=== PATIENT | female | born 1980 | race Caucasian/White ===

== ENCOUNTER 2019-05-03 11:00 | Outpatient (RCR) | payer OTHER, SELFPAY ==
--- NOTE | 2019-04-01 10:27 | PTOPEVAL ---
PHYSICAL THERAPY EVALUATION AND PLAN OF CARE 04-01-2019 The PT evaluation was completed today for the diagnosis of L shoulder pain/tendonitis and the plan of treatment is scheduled for 1-2 x/week for 4 weeks. Thank you for referring Yola to [facility]. Please review, sign, date and return this plan of care [facility]. I agree with and certify that the following plan of care is medically necessary. Referring Physician Date Attending Provider: Megan Lebron MD *PT Outpatient Evaluation Start: 04/01/19 09:05 Document 04/01/19 09:06 DARIO (Rec: 04/01/19 10:14 DARIO [id number]) Therapy Assessment Status Assessment Status Assessment Status Evaluation Outpatient Past Medical History Neurological History Hx Neurological Disorders No Significant History Cardiovascular History Hx Cardiac Disorders No Significant History Respiratory History Hx Other Respiratory Disorders Yes: seasonal allergies/ allergic to sorbitol/have epi pen Gastrointestinal History Hx Gastroesophageal Reflux Disease Yes: meds control Hx Other Gastrointestinal Disorders Yes: gall bladder removed; pancreatitis Musculoskeletal History Hx Arthritis Yes: general/all over joint pain, creaking Hx Other Musculoskeletal Disorders Yes: obesity 235#; recent L ankle sprain Integumentary History Hx Other Skin Disorders Yes: skin allergies to cleaning chemicals Reproductive History Hx Abnormal Uterine Bleeding Yes: uterine polyp removed Hx Other Reproductive Disorders Yes: ovarian cyst removal 2x; and one that burst Evaluation Information Problem Diagnosis L shoulder pain, tendonitis Onset Feb 04 2019 Subjective Information flute player, increased Query Text:As Reported By Patient/ playing over AVOB; Family Diagnostic Tests MRI For This Problem Yes: done recently-not know results Previous Treatments Previous Treatments For This Problem no PT for shoulder Prior Level of Function Activity Level (Last 3 Months) Occupation work is computer work; Hand Dominance Ambidextrous Cooking Yes Cleaning Yes Laundry Yes Shopping Yes Driving Yes Home Setting Home Type House Living Situation With Spouse Comments Additional Prior Level of Function active; bicycle 2-3 x/week Comments outside- seasonal; also lift weight for fitness- have not done since Nov
--- NOTE | 2019-05-03 11:49 | PTOPEVAL ---
PHYSICAL THERAPY DISCHARGE 05-03-2019 Mrs. Marrufo has received 6 Physical Therapy sessions, from April 01 to today, for the diagnosis of L shoulder pain, bicep tendonitis. Yola has improved with: decreased pain rating at the worst rating: not taking any over the counter meds for shoulder pain; increased L shoulder AROM and strength; playing the flute for 6 minutes; improved postural awareness and is independent with her home exercise program. Thank you for referring Mrs. Marrufo to [facility]. Please review, sign, date and return this discharge summary [facility]. I agree with and certify that the following plan of care is medically necessary. Referring Physician Date Attending Provider: Megan Lebron MD *PT Outpatient Discharge Document 05/03/19 11:13 DARIO (Rec: 05/03/19 11:43 DARIO [id number]) Subjective Information Yola reports: doing better Query Text:As Reported By Patient/ with range of motion, but Family strength still weak; have been ill with flu and not doing as much; play flute about 6 minutes; can lie on L side 20 minutes; Pain Assessment Timing of Pain Assessment Timing of Pain Assessment Assessment Pain Scale Pain Scale Used Numeric (1 - 10) Self Report Pain Assessment Left Shoulder(s) Reported Pain Level 0 Pain Description Burning,Tightness Radicular Pain Location anterior shoulder--little burning when play flute too long; Pain Frequency Acute Current Pain Intensity 0 Lowest Pain Intensity 0 Greatest Pain Intensity 2 Additional Pain Comments lie on L side 20 min;play flute 6 minutes;not taking any over counter meds Pain Score Pain Score 0: Self Report Upper Extremity Range of Motion Scapular/ Shoulder Range of Motion Left Shoulder Flexion - Active 155 Shoulder Abduction - Active 155 Shoulder Medial Rotation - Active fingers to bra strap; R=L Query Text:Reach Behind the Back Shoulder Lateral Rotation - Active reach to back of head Query Text:Reach Behind the Head Scapular/Shoulder Range of Motion with IR- tight anterior Comments shoulder, not pain Upper Extremity Muscle Strength Testing General Upper Extremity Strength Gross Upper Extremity Strength Comments standin reps with hand wt : flexion 155' with 5#; abduction 155' 4#; prone: sh extension/scapular adduction with arms at side; 90' 2# x 10 reps; with overhead; pulls cervical and
== END 2019-05-03 14:18 | disposition home or self-care (01) ==
LOC: ANHPT 11:00
PROVIDERS: PCP Family Medicine; Visit Provider Family Medicine
DX: M75.102 Unspecified rotator cuff tear or rupture of left shoulder, not specified as traumatic (principal); M75.22 Bicipital tendinitis, left shoulder; M25.519 Pain in unspecified shoulder
CPT/HCPCS: 97110; 97161

== ENCOUNTER 2019-08-03 16:06 | Outpatient (CLI) | payer OTHER, SELFPAY ==
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
== END 2019-08-03 16:07 | disposition home or self-care (01) ==
PROVIDERS: PCP Family Medicine; Visit Provider Physician Assistant
DX: M54.9 Dorsalgia, unspecified (principal)
CPT/HCPCS: 72100

== ENCOUNTER 2019-11-07 17:03 | Emergency (ER) | payer OTHER, SELFPAY ==
--- NOTE | ~2019-11-07 | XR_ITS ---
EXAMINATION: XR chest 2V DATE: 11/07/2019 18:02 INDICATION: Shortness of breath TECHNIQUE: PA and lateral views of the chest are obtained. COMPARISON: None available FINDINGS: The lungs are free of acute opacities. There is no pleural effusion or pneumothorax. The ca rdiomediastinal silhouette is normal. The visualized bones and soft tissues are unremarkable. Surgica l clips in the right upper quadrant are likely from prior cholecystectomy. IMPRESSION: 1. No acute cardiopulmonary abnormality. Reviewed, dictated and finalized at location A.
[2019-11-07 17:13] VITALS: BP 127/86; PULSE 78; RESP 16; TEMP 36.8; O2SAT 100
--- NOTE | 2019-11-07 17:13 | ECG_ITS ---
Measurements Intervals [place] Rate: 80 P: 66 ND: 158 QRS: 48 QRSD: 92 T: 59 QT: 366 QTc: 425 Interpretive Statements SINUS RHYTHM INCOMPLETE RIGHT BUNDLE BRANCH BLOCK BASELINE WANDER- V3 BORDERLINE ECG Electronically Signed On 11-07-2019 18:40:00 CDT by Nixon Ring D.O.
[2019-11-07 17:32] LABS: Basophils Absolute Auto 0.1 K/mm3 (0.0-0.1); Basophils Percent Auto 0.6 % (0.2-1.2); Eosinophils Absolute Auto 0.1 K/mm3 (0-0.3); Eosinophils Percent Auto 0.6 % (0-4.4); Hematocrit 38.1 % (37.0-47.0); Hemoglobin 12.5 g/dL (12.0-15.0); Immature Granulocyte Absolute 0.03 K/mm3 (0.00-0.031); Immature Granulocyte Percent A 0.3 % (0-0.5); Lymphocytes Absolute Auto 3.43 K/mm3 (0.9-3.2); Lymphocytes Percent Auto 31.6 % (18.3-44.2); Mean Corpuscular HGB Conc 32.8 g/dl (32-36); Mean Corpuscular Hemoglobin 28.1 pg (26-34); Mean Corpuscular Volume 85.6 fl (80-100); Mean Platelet Volume 9.5 fl (7.4-10.4); Monocytes Absolute Auto 0.5 K/mm3 (0.1-0.6); Monocytes Percent Auto 4.3 % (2.6-8.5); Neutrophils Absolute Auto 6.8 K/mm3 (1.3-6.7); Neutrophils Percent Auto 62.6 % (45.5-73.1); Platelet Count Result 350 k/mm3 (150-375); Red Blood Count 4.45 M/mm3 (4.2-5.4); White Blood Count 10.8 K/mm3 (4.5-10.0)
[2019-11-07 17:41] LABS: Prothrombin Time 12.5 Seconds (11.1-14.7)
[2019-11-07 17:42] LABS: Partial Thromboplastin Time 29.2 SECONDS (22.3-36.8)
[2019-11-07 17:45] LABS: Anion Gap 8 mmol/L (8-16); Blood Urea Nitrogen 12 mg/dL (7-17); Calcium 9.6 mg/dL (8.4-10.2); Carbon Dioxide 27 mmol/L (22-30); Chloride 104 mmol/L (98-107); Estimated CRCL calculation 93 ml/min; Estimated Glomerular Filt Rate > 60; Glucose 89 mg/dL (65-105); Potassium 3.9 mmol/L (3.4-5.0); Sodium 139 mmol/L (137-145)
[2019-11-07 17:56] LABS: Troponin I < 0.012 ng/mL (0.000-0.034)
[2019-11-07 21:52] VITALS: BP 168/99; PULSE 88; RESP 18; O2SAT 100
--- NOTE | 2019-11-07 21:54 | PC.NURSE ---
pt presents to ER with c/o palpitations. pt states last Thursday she had allergic reaction to flu shot. pt states since then she has had frequent episodes of palpitations. pt states, I can tell when my heart is racing when I am just sitting there. states max heart rate of 120. NSR upon arrival. denies CP, denies SOB. pt in NAD. RR even and unlabored. pt hooked up to monitor; will continue to monitor pt for baseline status changes. denies cardiac hx.
[2019-11-07] MEDS: ASPIRIN 81 MG CHEWABLE TABLET 324 MG PO (22:14)
--- NOTE | 2019-11-07 22:39 | ED.GENADULT ---
HPI - General Adult General Chief complaint: Arrhythmia/Palpitations Stated complaint: heart racing Time Seen by Provider: 11/07/19 21:51 Source: patient History of Present Illness HPI narrative: Patient is a 38 y/o female complaining of heart palpitation that started approximately 10 hours at around 12:30 PM today. She states that she was just sitting there when it happened. It lasted 30 minutes to 1 hour. There was no alleviating or exacerbating factor. She denies any chest pain, SOB or passing out. She states that her symptoms resolved spontaneously. Related Data Home Medications Medication Instructions Recorded Confirmed esomeprazole magnesium 20 mg 20 mg PO BID cap 08/03/19 08/03/19 capsule,delayed release loratadine [Claritin] 10 mg PO DAILY 11/07/19 Allergies Allergy/AdvReac Type Severity Reaction Status Date / Time omeprazole [From Prilosec] Allergy Mild Headache Verified 08/03/19 15:16 plum AdvReac Intermediate swelling Verified 08/03/19 15:16 Review of Systems Constitutional: Constitutional: Denies chills, Denies fever(s), Denies headache(s) and Denies weakness Eyes: Eyes: Denies blurry vision ENT: Denies headache(s) and Denies neck pain Cardiovascular: Cardiovascular: Denies chest pain, Reports rapid heart rate and Denies dyspnea Respiratory: Respiratory: Denies cough and Denies dyspnea Gastrointestinal: Gastrointestinal: Denies abdominal pain, Denies diarrhea, Denies nausea and Denies vomiting Genitourinary: Genitourinary: Denies hematuria and Denies dysuria Musculoskeletal: Musculoskeletal: Denies back pain and Denies neck pain Neurologic: Denies headache(s) and Denies weakness [facility] Family History Family History Other Cerebrovascular accident Diabetes mellitus Family history of arthritis Family history of malignant neoplasm Family history of mental disorder Hypertension Social History Social History Smoking status: Never smoker Alcohol intake: current Gender identity (if verbalized by the patient): Female Exam Const: General: no acute distress and well developed Orientation/consciousness: oriented to person, oriented to place, oriented to time and patient oriented x3 HENMT: Head: normocephalic Ears: external ears normal General nose exam: Normal external nose present Eyes: General: appearance normal, both eyes and all related structures Conjunctivae: conjunctivae normal Neck: Neck: normal visual inspection and full ROM Chest: Chest palpation & inspection: normal inspection of the chest and no tenderness Resp: Effort & Inspection: normal respiratory effort Auscultation: clear to auscultation bilaterally Cardio: Rate: regular rate Rhythm: regular rhythm GI: GI Palp: No abdominal tenderness and Yes Soft to palpation Skin: General skin exam: normal color and turgor normal Neuro: General: oriented to person, oriented to place, oriented to time and patient oriented x3 Cognition (Neuro): normal cognition Extrem: General: normal to inspection, full ROM and no pedal edema Psych: Appearance: grossly normal Mental Status: mental status grossly normal Affect: normal affect Course Vital Signs Vital signs: Vital Signs Temperature 36.8 C 11/07/19 17:13 Pulse Rate 78 11/07/19 17:13 Respiratory Rate 16 11/07/19 17:13 Blood Pressure 127/86 11/07/19 17:13 Pulse Oximetry 100 11/07/19 17:13 Temperature 36.8 C 11/07/19 17:13 Pulse Rate 77 11/08/19 00:16 Respiratory Rate 17 11/08/19 00:16 Blood Pressure 139/70 11/08/19 00:16 Pulse Oximetry 100 11/08/19 00:16 Medical Decision Making Vital Signs Vital Signs: Vital Signs Temperature 36.8 C 11/07/19 17:13 Pulse Rate 78 11/07/19 17:13 Respiratory Rate 16 11/07/19 17:13 Blood Pressure 127/86 11/07/19 17:13 Pulse Oximetry 100 11/07/19 17:13 Temperatu
[2019-11-07 22:44] LABS: Add Urine Microscopic? NO; Appearance Urine Clear (Clear); Bilirubin Urine Negative (Negative); Blood Urine Negative (Negative); Color Urine Yellow (Yellow); Glucose Urine UA Negative (Negative); Ketones Urine Negative (Negative); Leukocyte Esterase Ur Negative LEU/UL (Negative); Mucus Urine Rare /lpf; Nitrate Urine Negative (Negative); Protein Urine Negative (Negative); RBC Urine 0-2 /hpf (0-2); Squamous Epithelial Cell Urine Few /hpf (Few); Urobilinogen Urine Negative mg/dL (<2.0); WBC Urine 0-3 /hpf
[2019-11-07 22:52] LABS: Troponin I < 0.012 ng/mL (0.000-0.034)
--- NOTE | 2019-11-07 22:54 | PC.NURSE ---
pt's at bedside-updated on poc
[2019-11-08 00:16] VITALS: BP 139/70; PULSE 77; RESP 17; O2SAT 100
== END 2019-11-08 00:17 | disposition home or self-care (01) ==
PROVIDERS: Emergency Provider Emergency Medicine; PCP Family Medicine
DX: R00.2 Palpitations (principal); R00.0 Tachycardia, unspecified; I45.10 Unspecified right bundle-branch block
CPT/HCPCS: 36415; 71046; 80048; 81003; 81025; 84443; 84484; 85025; 85610; 85730; 93005; 99284; A9270

== ENCOUNTER 2020-05-04 15:46 | Outpatient (CLI) | payer OTHER, SELFPAY | END 2020-05-04 15:47 | disposition home or self-care (01) | LOC: ANHCOVIDVC 15:46 | PROVIDERS: PCP Family Medicine | DX: Z23 Encounter for immunization (principal) | CPT/HCPCS: 0001A; 91300 ==

== ENCOUNTER 2020-05-25 15:52 | Outpatient (CLI) | payer OTHER, SELFPAY | END 2020-05-25 15:53 | disposition home or self-care (01) | LOC: ANHCOVIDVC 15:52 | PROVIDERS: PCP Family Medicine | DX: Z23 Encounter for immunization (principal) | CPT/HCPCS: 0002A; 91300 ==

== ENCOUNTER 2021-06-12 09:34 | Outpatient (CLI) | payer OTHER, SELFPAY ==
--- NOTE | ~2021-06-12 | MM_ITS ---
EXAMINATION: MM screening frank BI w sara HISTORY: Screening TECHNIQUE: Craniocaudal and mediolateral oblique 3-D tomosynthesis images were obtained and synthetic 2-D images were generated. CAD analysis was submitted and interpreted. COMPARISON: No prior mammogram is available for comparison at this institution. BREAST PARENCHYMAL COMPOSITION: There are scattered areas of fibroglandular density. FINDINGS: There is no evidence of suspicious mass, calcification, or architectural distortion to sugg est malignancy in either breast. There has been no suspicious interval change. IMPRESSION: 1. No mammographic evidence of malignancy. 2. Recommend routine screening mammography in one year. BI-RADS Category 1: Negative Reviewed, dictated and finalized at location A.
== END 2021-06-12 09:35 | disposition home or self-care (01) ==
LOC: ANHIMG 09:35
PROVIDERS: PCP Family Medicine; Visit Provider Obstetrics & Gynecology
DX: Z12.31 Encounter for screening mammogram for malignant neoplasm of breast (principal)
CPT/HCPCS: 77063; 77067

== ENCOUNTER 2021-08-14 10:19 | Outpatient (RCR) | payer BC, SELFPAY ==
[2021-08-14] MEDS: ACETAMINOPHEN 325 MG TABLET 650 MG PO (10:37)
[2021-08-14] MEDS: diphenhydrAMINE HCl CAP 25 MG CAPSULE PO (10:38)
[2021-08-14] MEDS: FAMOTIDINE 20 MG TABLET PO (10:38)
[2021-08-14 10:42] VITALS: BP 150/82; PULSE 82; TEMP 36.2; O2SAT 99
[2021-08-14] MEDS: BEBTELOVIMAB 175 MG/2 ML VIAL IV PUSH (10:56)
[2021-08-14 11:54] VITALS: BP 134/63; PULSE 72; O2SAT 99
== END 2021-08-14 16:00 ==
LOC: AMCINF 10:19
PROVIDERS: Visit Provider Internal Medicine Hematology & Oncology
DX: U07.1 COVID-19 (principal)
CPT/HCPCS: A9270; M0222; Q0222

== ENCOUNTER 2022-07-28 15:28 | Outpatient (CLI) | payer BC, SELFPAY ==
--- NOTE | ~2022-07-28 | MM_ITS ---
EXAMINATION: MM screening frank BI w sara HISTORY: Screening mammogram TECHNIQUE: Craniocaudal and mediolateral oblique 3-D tomosynthesis images were obtained and synthetic 2-D images were generated. CAD analysis was submitted and interpreted. COMPARISON: June 12, 2021 bilateral screening mammogram BREAST PARENCHYMAL COMPOSITION: There are scattered areas of fibroglandular density. FINDINGS: There is no evidence of suspicious mass, calcification, or architectural distortion to sugg est malignancy in either breast. There has been no suspicious interval change. IMPRESSION: 1. No mammographic evidence of malignancy. 2. Recommend routine screening mammography in one year. BI-RADS Category 1: Negative Reviewed, dictated and finalized at location A.
== END 2022-07-28 15:29 | disposition home or self-care (01) ==
LOC: ANHIMG 15:29
PROVIDERS: PCP Emergency Medicine; Visit Provider Obstetrics & Gynecology
DX: Z12.31 Encounter for screening mammogram for malignant neoplasm of breast (principal)
CPT/HCPCS: 77063; 77067

== ENCOUNTER 2022-10-06 14:30 | Outpatient (CLI) | payer BC, SELFPAY ==
--- NOTE | 2022-10-06 14:48 | ECG_ITS ---
Measurements Intervals [place] Rate: 85 P: 63 DE: 140 QRS: 34 QRSD: 99 T: 68 QT: 355 QTc: 424 Interpretive Statements SINUS RHYTHM POSSIBLE RIGHT VENTRICULAR CONDUCTION DELAY [RSR (QR) IN V1/V2] COMPARED TO ECG 11/07/2019 17:08:07 NO SIGNIFICANT CHANGES Electronically Signed On 10-07-2022 11:09:57 CDT by Deb Millan M.D.
== END 2022-10-06 14:31 | disposition home or self-care (01) ==
LOC: ANHCARD 14:32
PROVIDERS: PCP Emergency Medicine; Visit Provider Emergency Medicine
DX: R00.2 Palpitations (principal); I45.9 Conduction disorder, unspecified
CPT/HCPCS: 93005

== ENCOUNTER 2023-01-20 12:49 | Emergency (ER) | payer BC, SELFPAY ==
[2023-01-20 13:03] VITALS: BP 132/64; PULSE 89; RESP 16; TEMP 37.2; O2SAT 99
[2023-01-20 13:10] VITALS: BP 132/64; PULSE 89; RESP 16; O2SAT 99
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
== END 2023-01-20 13:32 | disposition home or self-care (01) ==
PROVIDERS: Emergency Provider Nurse Practitioner; PCP Emergency Medicine
DX: M54.50 Low back pain, unspecified (principal); K21.9 Gastro-esophageal reflux disease without esophagitis; K22.4 Dyskinesia of esophagus
CPT/HCPCS: 99213; G0463

== ENCOUNTER 2023-01-26 08:44 | Outpatient (CLI) | payer SELFPAY ==
--- NOTE | ~2023-01-26 | MR_ITS ---
MRI of the lumbar spine Clinical History: Sciatica Technique: Axial T2-weighted images, and sagittal T1-weighted, T2-weighted, and and T2 fat-sat images were acquired. Findings: There is no fracture or subluxation of the lumbar spine. Vertebral bodies maintain normal h eight and alignment. No bone marrow signal abnormality seen. At L1-L2, there is no disc bulge or herniation. There is mild facet joint hypertrophy. No spinal horacio l stenosis or neural foraminal narrowing. At L2-L3, there is minimal disc bulge with moderate facet arthropathy. No central canal stenosis or n eural foraminal narrowing. L3-L4 and L4-L5, there is no disc bulge or herniation. There is mild facet arthropathy at these level s. No spinal canal stenosis or neural foraminal narrowing at these levels. At L5-S1, there is mild disc bulge with small annular fissure. There is minimal facet arthropathy. No central canal stenosis. There is minimal bilateral neural foraminal narrowing. Paravertebral soft tissues are unremarkable. Impression: Minimal degenerative spondylosis, worst at L5-S1, as detailed above. Reviewed, dictated and finalized at location . LEVEL DEVELOPER Impression: Minimal degenerative spondylosis, worst at L5-S1, as detailed above.
== END 2023-01-26 08:45 ==
PROVIDERS: PCP Emergency Medicine; Visit Provider Emergency Medicine
DX: M54.30 Sciatica, unspecified side (principal); M47.896 Other spondylosis, lumbar region
CPT/HCPCS: 72148

== ENCOUNTER 2023-06-30 10:16 | Outpatient (CLI) | payer BC, SELFPAY ==
--- NOTE | ~2023-06-30 | XR_ITS ---
AP view of the pelvis and AP and lateral views of the right hip Clinical history: Pain Findings: No acute fracture or dislocation is seen. Osseous alignment is anatomic. Bilateral hip and SI joint spaces are preserved. Soft tissues are unremarkable. Impression: No significant abnormality is seen. Reviewed, dictated and finalized at [facility]. Impression: No significant abnormality is seen.
== END 2023-06-30 10:17 ==
PROVIDERS: PCP Emergency Medicine; Visit Provider Emergency Medicine
DX: M25.551 Pain in right hip (principal)
CPT/HCPCS: 73502

== ENCOUNTER 2023-10-15 15:39 | Outpatient (CLI) | payer BC, SELFPAY ==
--- NOTE | ~2023-10-15 | MM_ITS ---
EXAMINATION: MM screening frank BI w sara HISTORY: Screening TECHNIQUE: Craniocaudal and mediolateral oblique 3-D tomosynthesis images were obtained and synthetic 2-D images were generated. CAD analysis was submitted and interpreted. COMPARISON: Comparison to multiple prior studies sequentially, with oldest reviewed study dated 06/12. BREAST PARENCHYMAL COMPOSITION: Not dense: There are scattered areas of fibroglandular density. FINDINGS: There is a new partially obscured mass in the upper outer quadrant of the right breast, pos terior third. The left breast is stable without evidence for malignancy. IMPRESSION: 1. New partially obscured mass upper outer quadrant of the left breast posterior third. 2. Additional mammographic views and possible breast ultrasound are recommended. BI-RADS Category 0: Incomplete: Needs additional imaging evaluation. Reviewed, dictated and finalized at location B. IMPRESSION: 1. New partially obscured mass upper outer quadrant of the left breast posterio r third. 2. Additional mammographic views and possible breast ultrasound are recommended . BI-RADS Category 0: Incomplete: Needs additional imaging evaluation.
== END 2023-10-15 15:40 | disposition home or self-care (01) ==
PROVIDERS: PCP Emergency Medicine; Visit Provider Obstetrics & Gynecology
DX: Z12.31 Encounter for screening mammogram for malignant neoplasm of breast (principal); N63.21 Unspecified lump in the left breast, upper outer quadrant
CPT/HCPCS: 77063; 77067

== ENCOUNTER 2023-11-23 12:43 | Outpatient (CLI) | payer BC, SELFPAY ==
--- NOTE | ~2023-11-23 | MMUS_ITS ---
EXAMINATION: MM diagnostic frank RT w sara, US breast RT limited HISTORY: Follow-up right breast asymmetry TECHNIQUE: Additional 3-D tomosynthesis images of the right breast were performed and synthetic 2-D i mages were generated. CAD analysis was submitted and interpreted. High resolution Limited right breas t ultrasound was performed. COMPARISON: Comparison to multiple prior studies sequentially, with oldest reviewed study dated 06/12. BREAST PARENCHYMAL COMPOSITION: Not dense: There are scattered areas of fibroglandular density. FINDINGS: MAMMOGRAPHIC FINDINGS: There is a new low-density mass in the upper outer quadrant of the right breast partially obscured by fibroglandular tissue. ULTRASOUND: Limited right breast ultrasound : At 10:00, 8 cm from the nipple is a lobulated hypoechoic mass measu ring 1.6 x 0.4 cm. No significant internal vascularity or posterior features. IMPRESSION: 1. Lobulated hypoechoic right breast mass at 10:00, 8 cm from the nipple. 2. Ultrasound-guided right breast biopsy recommended. BI-RADS category 4, suspicious findings. Reviewed, dictated and finalized at location B. IMPRESSION: 1. Lobulated hypoechoic right breast mass at 10:00, 8 cm from the nipple. 2. Ultrasound-guided right breast biopsy recommended. BI-RADS category 4, suspicious findings.
== END 2023-11-23 12:44 | disposition home or self-care (01) ==
LOC: ANHIMG 12:44
PROVIDERS: PCP Emergency Medicine; Visit Provider Obstetrics & Gynecology
DX: N63.20 Unspecified lump in the left breast, unspecified quadrant (principal); R92.8 Other abnormal and inconclusive findings on diagnostic imaging of breast
CPT/HCPCS: 76642; 77061; 77065; G0279

== ENCOUNTER 2023-11-26 07:50 | Outpatient (CLI) | payer BC, SELFPAY ==
--- NOTE | 2023-12-21 11:22 | P.SLEEP_ITS ---
Sleep Study Date of Study: 11/26/23 Ordering Provider: Ender Meeks APRN Interpreting Physician: Heena Alberto DO Sleep Study Type: Polysomnogram Height: 1.73 m Weight: 109.316 kg Body Mass Index: 36.6 Neck Circumference (inches): 16.75 Herreid: 12 Reason for Sleep Study Daytime fatigue Sleep History The patient is a 43-year-old female that had a sleep study ordered by the pulmonary group for evaluation daytime fatigue. The patient denies awakening from sleep short of breath. She frequently awakens at night with heartburn, belching or cough. She rarely snores and is never loud enough that others com plain. She occasionally has trouble sleeping when she has a cold. She denies waking up gasping for air throughout the night. She denies having breathing problems at night observed by herself or others. She denies sweating excessively at night. She occasionally has heart palpitations or irregular heartbeats during the night. She frequently falls asleep during the day but never while driving. She rarely experiences loss of muscle tone when extremely emotional. She occasionally has trouble at school or work due to sleepiness. She rarely feels unable to move while waking up or falling asleep. She constantly experiences vivid dreamlike scenes upon awakening or falling asleep. She denies feeling afraid of going to sleep. She rarely has nightmares. She occasionally remembers her dreams. She constantly has thoughts racing through her mind. She denies feeling sad or depressed. She rarely has anxiety. She rarely has muscular tension. She rarely notices parts of her body jerk. She denies kicking during the night. She denies having crawling and aching feelings in her legs and denies having leg pain during the night. She rarely grinds her teeth during sleep but occasionally awakens with morning jaw pain. She does currently use a entrance guard. She frequently is bothered by pain during the day but rarely awakened by pain during the night. She frequently wakes up feeling stiff in the morning. She frequently wakes up with sore or achy muscles. She constantly wakes up with pain in the neck, spine and other joints. She goes to bed between 9:45-10 p.m. on weekdays and between 10 to 10:30 p.m. on the weekends. It takes her 30-60 minutes to fall asleep. She wakes up 1-3 times throughout the night for unknown reasons. When she wakes up she will think about her dreams, right a story or music. She wakes up between 2-5 a.m. on both weekdays and weekends. He typically gets 5-9 hours of sleep per day. She will stay in bed for 10-15 minutes after waking up in the morning. She currently lives with her . She denies consuming any caffeinated beverages within 2 hours of bedtime. She denies engaging in physical exercise before bedtime. She will read before falling asleep. She denies watching television before falling asleep. She will take naps in afternoon of the evening and they are occasionally refreshing. She denies consuming caffeinated beverages throughout the day. She denies tobacco, alcohol and recreational drug use. [facility] Past Medical History Medical History Abnormal Pap smear of cervix 09/24/2016 ascus Acid reflux COVID-19 Diaphragmatic hernia without obstruction or gangrene Dyskinesia of esophagus Eczema Helicobacter pylori [H. pylori] as the cause of diseases classified elsewhere Left breast mass Left breast mass Neuralgia of left peroneal nerve Patellar tendinitis, left knee Screening mammogram, encounter for Screening mammogram, encounter for Surgical History Surgical History History of cholecystectomy 2016 History of dilation and curettage 03/11/18 hscope d&c/polypectomy--irregular vaginal bleeding, endometrial polyp History of endoscopic retrograde cholangiopancreatography 2016 pancreatitis History of esophagogastroduodenoscopy (EGD) 2012 x2 Family History Family History Father Heart disease Hypertension Diabetes mellitus Other Cerebrovascular accident Family history of arthritis Family history of malignant neoplasm Family history of mental disorder Social History Social History Smoking status: Never smoker Second hand tobacco smoke exposure: No Alcohol intake: former Alcohol use details: occasionally Substance use: never Substance use type: does not use Current Housing: Decline to Answer Concerned About Future Housing: Decline to Answer Difficulty Paying Gas/Electric Bills: Decline to Answer Difficulty Paying for Meds: Decline to Answer Currently Unemployed: Decline to Answer Education: Decline to Answer Difficulty w/ Childcare or Family Care: Decline to Answer Living arrangements: other Additional living arrangements comments: Occupation/Education: 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 Gender identity (if verbalized by the patient): Female Sexual Orientation (if Verbalized by the Patient): Straight or Heterosexual Medications Home Medications Medication Instructions Recorded Confirmed Type cholecalciferol (vitamin D3) 25 25 mcg PO DAILY 06/16/22 09/14/23 History mcg (1,000 unit) tablet esomeprazole magnesium 40 mg See Rx Instructions .Route 04/24/23 09/14/23 Rx capsule,delayed release .COMPLEX #180 caps cetirizine 10 mg capsule (Zyrtec) 10 mg PO DAILY PRN 05/27/23 09/14/23 History atomoxetine 80 mg capsule 80 mg PO DAILY #90 caps 08/11/23 09/14/23 Rx hydralazine 25 mg tablet 25 mg PO BID #180 tabs 08/11/23 09/14/23 Rx amlodipine 10 mg tablet (Norvasc) 10 mg PO DAILY #90 tabs 09/28/23 Rx losartan 100 See Rx Instructions .Route 09/28/23 Rx mg-hydrochlorothiazide 12.5 mg .COMPLEX #90 tabs tablet Sleep Procedure A full night polysomnogram using the [employer] multi-channel system recorded the standard physiologic parameters including EEG, EOG, submentalis EMG, anterior tibialis EMG, EKG, body position, nasal and oral airflow using nasal pressure sensor and thermistor.? Respiratory parameters of chest and abdominal movements were recorded with Respiratory Inductance Plethysmography belts. Oxygen saturation was recorded by pulse oximetry. Video monitoring was also performed. Sleep stages, periodic limb movements, and EEG arousals were scored in 30 second epochs according to the criteria of the AASM Scoring Manual. The Apnea-Hypopnea Index was calculated using CMS guidelines for definition of hypopnea with 4% O2 desaturations while scoring respiratory events. Sleep Architecture The total recording time was 493.6 minutes.? The total sleep time was 428.0 minutes. Sleep latency was 26.4 minutes. REM latency was 106.5 minutes. Sleep efficiency was 86.7%. The patient had 40 awakenings for an awakening index of 5.6. Wake after sleep onset time was 39.0 minutes. The patient spent 25.5 minutes, 6.0% of total sleep time in Stage N1. The patient spent 202.5 minutes, 47.3% in Stage N2. The patient spent 96.5 minutes, 22.5% in Stage N3. The patient spent 103.5 minutes, 24.2% in Stage REM sleep. Respiratory Analysis The patient had 15 hypopneas for an overall Apnea Hypopnea Index of 2.1. The REM Apnea Hypopnea Index was 8.7. The NREM Apnea Hypopnea Index was 0. The patient had a Central Apnea Hypopnea Index of 0. There was no evidence of [place] Respirations. Arousals There were 83 total arousals for an arousal index of 11.6. There were 74 spontaneous arousals for an index of 10.4. There were 1 arousal due to a respiratory event for an index of 0.1. There were 0 arousals due to periodic limb movements for an index of 0.? There were 8 arousals due to isolated limb movements for an index of 1.1. Periodic Limb Movements The patient had 8 isolated limb movements with an index of 1.1. The patient had 0 periodic limb movements with an index of 0. Patient had a total of 8 limb movements with a total limb movement index of 1.1. Oximetry Data The patient had an average oxygen saturation of 95.7% in sleep with a minimum oxygen saturation of 90.0% and a maximum oxygen saturation of 99.0%. The patient had 18 oxygen desaturations that were 4% or greater resulting in an Oxygen Desaturation Index of 2.5.? The patient spent 0 minutes of total sleep time with an oxygen saturation below 88%. Snoring Profile Mild snoring was present intermittently throughout the study. Cardiac Profile The EKG showed normal sinus rhythm. No arrhythmias or PVCs were seen. The patient had an average pulse rate of 71.8 bpm with a minimum pulse of rate of 57.0 bpm and a maximum pulse rate of 91.0 bpm.? EEG Profile No signs of seizure activity seen. Assessment and Plan Assessment and Plan (1) Excessive daytime sleepiness: Code(s): G47.19 - Other hypersomnia Status: Acute Assessment and Plan: The patient had an overall AHI 2.1 with desaturation down to 90%. This is not consistent with sleep disordered breathing. The patient did have a REM AHI of 8.7. Her respiratory events occurred mostly in the supine position. I recommend that the patient try to sleep on her side if possible. In the office note from 09/14/2023, the patient denied cataplexy. The body technician noted that the patient did have symptoms consistent with cataplexy. Further evaluation is needed to see if the patient has symptoms consistent with narcolepsy. The patient should be counseled on proper sleep hygiene. Insomnia Tips * Have a wind down period before bed where there are no electronics, blue light or stimulating activities. 30 minutes- 1 hour. * Establish a set wake-up time for yourself, and get up at the set time even if you feel like you need more sleep * Do not go to bed until you are ready to fall asleep. Do not go to bed because it is bedtime * If you have not gone to sleep after what feels like 20 minutes, get up and leave the bedroom. Meditate, pray, listen to soft music or read a boring book until you feel sleepy.? No work or productive activities. Go back to bedroom and try to fall asleep. Repeat cycle as many times until you fall asleep. * The bed is only meant for sleep and sex. Avoid activities like reading, smoking, listening to the radio, using the computer, or watching TV in bed. * Try to keep active during the day and avoid napping. * No caffeine after noon. Data The data obtained during this sleep study is adequate for interpretation. Certification This sleep study has been reviewed by a board certified sleep medicine physician.
[2023-12-21 11:23] VITALS: BMI 36.6
== END 2023-11-27 06:37 | disposition home or self-care (01) ==
PROVIDERS: PCP Emergency Medicine; Visit Provider Nurse Practitioner Family
DX: G47.10 Hypersomnia, unspecified (principal); G47.19 Other hypersomnia
CPT/HCPCS: 95810

== ENCOUNTER 2024-05-31 08:30 | Outpatient (CLI) | payer BC, SELFPAY ==
--- OUTSIDE RECORDS SUMMARY | 2024-05-31 08:48 | XMS_ITS | Clinical Summary ---
Author Organization [facility] al Address [address] [place] [address] Care Team Providers Care Detective Narcotics And Vice Name Role Phone Megan Lebron MD Primary Care Provider + Allergies Active Allergy Reactions Criticality Noted Date Comments Lansoprazole Headache Low 12/06/[address] (NexIUM) 20 mg capsule Take 20 mg by mouth daily before breakfast Active Active Problems Problem Noted Date Diagnosed Date Palpitations 02/27/2020 Lipid screening 02/27/2020 Overweight 02/27/2020 Surgical History Surgery Date Site/Laterality Comments CHOLECYSTECTOMY Medical History Medical History Date Comments Reflux esophagitis Family History Medical History Relation Name Comments Hypertension Father Diabetes Mother Hypertension Mother Osteoarthritis Mother Relation Name Status Comments Father (Age 67) Mother (Age 67) Social History Tobacco Use Types Packs/Day Years Used Date Smoking Tobacco: Never Smokeless Tobacco: Never Alcohol Use Standard Drinks/Week Comments Yes 1 (1 standard drink = 0.6 oz pur e alcohol) Personal Safety Answer Date Recorded Getting School Help Needed Not on file 05/02 Comments No Sex and Gender Information Value Date Recorded Sex Assigned at Not on file Legal Sex Female 4:34 PM CDT Gender Identity Not on file Sexual Orientation Not on file Obstetrics History Last Filed Vital Signs Vital Sign Reading Time Taken Comments Blood Pressure 126/80 02/27/2020 12:20 PM GUEST RELATIONS ASSOCIATE Pulse 78 02/27/2020 12:20 PM GUEST RELATIONS ASSOCIATE Temperature 36.6 C (97.8 F) 12/27/2019 8:10 AM GUEST RELATIONS ASSOCIATE Respiratory Rate 19 11/28/2017 8:30 PM CDT Oxygen Saturation 100% 11/28/2017 8:30 PM CDT Inhaled Oxygen Concentration - - Weight 111.1 kg (245 lb) 02/27/2020 12:20 PM GUEST RELATIONS ASSOCIATE Height 170.2 cm (5' 7 ) 02/27/2020 12:20 PM GUEST RELATIONS ASSOCIATE Body Mass Index 38.37 02/27/2020 12:20 PM GUEST RELATIONS ASSOCIATE Plan of Treatment Not on file Insurance [facility]MO [facility] H[facility]PPO Address: [address] [place] [address] CHOICE PL[facility] H[facility]/PPO Address: [address] [address] [place] [address] Care Teams Detective Narcotics And Vice Relationship Specialty Start Date End Date Megan Lebron MD [facility] - General 11/28/17
--- OUTSIDE RECORDS SUMMARY | 2024-05-31 08:48 | XMS_ITS | Referral Summary ---
Author Organization [facility] al Address [address] [place] [address] Care Team Providers Care Meat Team Member Name Role Phone Megan Lebron MD Primary Care Provider + Allergies Active Allergy Reactions Criticality Noted Date Comments Lansoprazole Headache Low 12/06/[address] (NexIUM) 20 mg capsule Take 20 mg by mouth daily before breakfast Active Active Problems Problem Noted Date Diagnosed Date Palpitations 02/27/2020 Lipid screening 02/27/2020 Overweight 02/27/2020 Social History Tobacco Use Types Packs/Day Years [...] on file Sexual Orientation Not on file Last Filed Vital Signs Vital Sign Reading Time Taken Comments Blood Pressure 126/80 02/27/2020 12:20 PM HEALTHCARE ECONOMICS CONSULTANT Pulse 78 02/27/2020 12:20 PM HEALTHCARE ECONOMICS CONSULTANT Temperature 36.6 C (97.8 F) 12/27/2019 8:10 AM HEALTHCARE ECONOMICS CONSULTANT Respiratory Rate 19 11/28/2017 8:30 PM CDT Oxygen Saturation 100% 11/28/2017 8:30 PM CDT Inhaled Oxygen Concentration - - Weight 111.1 kg (245 lb) 02/27/2020 12:20 PM HEALTHCARE ECONOMICS CONSULTANT Height 170.2 cm (5' 7 ) 02/27/2020 12:20 PM HEALTHCARE ECONOMICS CONSULTANT Body Mass Index 38.37 02/27/2020 12:20 PM HEALTHCARE ECONOMICS CONSULTANT Plan of Treatment Not on file Insurance [facility] HMO CHOICE PLUS Care Teams Meat Team Member Relationship Specialty Start Date End Date Megan Lebron MD PCP - General 11/28/17
--- OUTSIDE RECORDS SUMMARY | 2024-05-31 08:48 | XMS_ITS | Clinical Summary ---
Author Organization [facility] Address [address] [place] [address] Care Team Providers Care Mechanism Assembler Name Role Phone Uriah Alicea MD Primary Care Provider [phone] Source Comments [facility],non-owned Affiliates and Associated Physician Practices is amultiple site organization consisting of ambulatory clinics and hospital sitesin [place], [place], [place] and [place]. This disclosure is being madepursuant to the Care Everywhere program and may not contain all information available regarding this patient. Last updated 17.[facility] Allergies Active Allergy Reactions Criticality Noted Date Comments Metoprolol Elevated Blood Pressure Medium 12/03/2023 tachycardia Nickel Skin Reactions 12/03/2023 Omeprazole Headache Low 06/20/2021 Skin Adhesives Rash Medium 06/20/2021 Sorbitol Rash Medium 06/20/2021 Medications * Be aware that medications may not be up to date on this document. Alwaysverify current medications with the patient. esomeprazole (NEXIUM) 20 MG capsule Take 40 mg by mouth once daily 1 Active triamcinolone acetonide (KENALOG) 0.1 % cream 2 Active cetirizine (ZYRTEC) 10 MG tablet Take 10 mg by mouth once daily as needed for Allergies Active Encounters Date Type Department Care Team Description 04/18/2024 1:26 PM [employer] - 04/18/2024 1:59 PM [employer] Hospital Encounter [facility] [address] [place] [address] Jeanette Paul MD Discharge Disposition: Home or Self Care 04/18/2024 Travel from Last 3 Months Family History Medical History Relation Name Comments Alcohol abuse Father CAD (Coronary Artery Disease) Father Diabetes - Type 2 Father Hypertension Father Cancer - Breast Maternal Grandmother Dementia Mother Depression Mother Eczema Mother Osteoporosis Mother Relation Name Status Comments Father Maternal Grandmother Mother Social History Tobacco Use Types Packs/Day Years Used Date Smoking Tobacco: Never Smokeless Tobacco: Never Tobacco Cessation:Counseling Given: Not Answered Alcohol Use Standard Drinks/Week Comments Yes 1 (1 standard drink = 0.6 oz pur e alcohol) Comments No Sex and Gender Information Value Date Recorded Sex Assigned at Not on file Legal Sex Female 9:30 AM CDT Gender Identity Not on file Sexual Orientation Not on file Last Filed Vital Signs Vital Sign Reading Time Taken Comments Blood Pressure 167/80 12/10/2021 8:40 AM CDT Pulse 80 09/24/2021 10:03 AM CDT Temperature 25.6 C (78 F) 12/10/2021 8:40 AM CDT Respiratory Rate 16 07/09/2021 11:07 AM CDT Oxygen Saturation - - Inhaled Oxygen Concentration - - Weight 113.4 kg (250 lb) 04/18/2024 2:10 PM [employer] Height 170.2 cm (5' 7 ) 04/18/2024 2:10 PM [employer] Body Mass Index 39.16 04/18/2024 2:10 PM [employer] Plan of Treatment Upcoming Encounters Date Type Department Care Team (Late st Contact Info) Description 10/19/2024 9:00 AM CDT Appointment [facility] [address] [place] [id number] 10/19/2024 9:30 AM CDT Office Visit [facility] - General Surgery [address] [place] [id number] Estrella Cardenas MD [address] [facility] [address] [place] [phone] Health Maintenance Due Date Last Done Comments MAMMOGRAM 1980 PAP SMEAR 1980 HIV SCREENING 11/28/1995 HEPATITIS C SCREENING 11/23/1998 DTAP/TDAP/TD VACCINES (1 - Tdap) 11/28/1999 HEPATITIS B VACCINE (1 of 3 - 19+ 3-dose series) 11/28/1999 SCREENING FOR DIABETES 06/20/2021 COVID-19 VACCINE (1 - 2023-2 5 season) 2023 DEPRESSION SCREENING 02/17/2024 INFLUENZA VACCINE (Season Ended) 2024 LIPID TESTING 02/26/2025 02/27/2020 ZOSTER VACCINE (1 of 2) 2030 HIB VACCINE Aged Out No longer eligi ble based on patient's age to complete this topic HPV VACCINE Aged Out No longer eligi ble based on patient's age to complete this topic MENINGOCOCCAL (Group B) VACC INE SHARED DECISION-MAKING Aged Out No longer eligibl e based on patient's age to complete this topic MENINGOCOCCAL GROUPS A/C/Y/W VACCINE Aged Out No longer eligible b ased on patient's age to complete this topic PNEUMOCOCCAL VACCINE Aged Out No long er eligible based on patient's age to complete this topic Medical Devices Implanted Type [employer] T[employer] Device Identifier Shelf Expiration Date Model / Serial / Lot [employer] Ultracor Ultrasound Enhanced Heart Breast Tissue Marker Implanted:Qty: 1 on 12/03/2023 by Lilly Smith MD at [facility] Right: Breast [id number] 06/16/2026 [id number] / / [id number] Procedures Procedure Name Priority Date/Time Associated Diagnosis Comments MAMMO RIGHT DIAGNOSTIC W CAMPBELL Routine 04/18/2024 2:46 PM [employer] Follow-up examination of abnormal mammogram from Last 3 Months Results * Mammo Right Diagnostic W Campbell (04/18/2024 2:46 PM [employer]) Anatomical Region Laterality Modality Breast Right Mammography 04/18/2024 2:24 PM [employer] Impressions 04/18/2024 2:45 PM [employer] IMPRESSION: No mammographic evidence of malignancy in the right breast. RECOMMENDATION: 1. Continue annual routine screening mammography, pending no interval breast concerns, next due September 2024. 2. Given the elevated lifetime risk of developing breast cancer of greater than 20%, consultation in the [facility] is recommended. 3. Annual screening breast MRI is recommended, given the elevated lifetime risk of developing breast cancer greater than 20%, according to the [place] [employer] guidelines. This can be alternated at 6 month intervals with mammography performed at the time of screening mammography and can be managed by the high risk breast clinic. Uriel Carrion discussed the examination findings and recommendations with the patient the time of the examination. Patient also met with our nurse navigator who will contact the referring physician as well as assist the patient in scheduling her high risk consultation appointment. Patient will also receive the exam results by lay letter. OVERALL ASSESSMENT: BI-RADS CATEGORY 2: BENIGN. > Interpreting Provider: Agnes Trevino, DO on 04/18/2024 2:45 PM Narrative 04/18/2024 2:45 PM DIRECTOR OF GUIDANCE [employer] EXAMINATIONS: RIGHT DIGITAL DIAGNOSTIC MAMMOGRAM AND BREAST TOMOSYNTHESIS WITH CAD LOCATION: [facility] EXAM DATE: 04/18/2024 HISTORY: 43-year-old female presents for right diagnostic mammogram in follow-up to a benign concordant ultrasound-guided biopsy performed on 12/03/2023 targeting in hypoechoic mass in the right breast at the 10:00 axis yielding fibroadenoma. She has a family history of breast cancer in her maternal grandmother at age 70. The remainder of her family history is relatively unknown. RISK ASSESSMENT CALCULATION: Patient completed a breast cancer risk assessment during her appointment today. Based upon the information she provided and her mammographic breast density, her lifetime risk of developing breast cancer is 28 % (Average Risk <15%; Intermediate / Moderate Risk 15-19%; High Risk > 20%). Given the elevated lifetime risk of breast cancer greater than 20%, consultation in the [facility] Breast Surgery High Risk Clinic is recommended. Should she wish to schedule an appointment, the phone number [phone]. The [place] [employer] Society recommends annual screening breast MRI in addition to mammograms for women who have a 20% or greater lifetime risk of developing breast cancer. This can be managed through the high risk breast clinic. Risk assessment based upon the Tyrer-Cuzick v8 model. COMPARISON: Prior breast imaging studies dating back to 06/12/2021 TECHNIQUE: Diagnostic right mammography was performed.Tomosynthesis (3D) and reconstructed synthetic 2-D images acquired. Full field CC, MLO and true lateral views of the right breast were acquired. A CC view with nipple in profile was also obtained. A total of 4 images were obtained. Computer-aided detection (CAD) was utilized. BREAST COMPOSITION: Category B: There are scattered areas of fibroglandular density. FINDINGS: There is a heart-shaped biopsy clip in the upper outer right breast, indicating the site of prior benign concordant biopsy yielding fibroadenoma. There is no suspicious mass, evidence of architectural distortion or suspicious calcifications. No mammographic evidence of malignancy. us Christiano Luciano MD MAMMO ORDERABLES Final Result from Last 3 Months Insurance ANTHE[employer] Care Teams Mechanism Assembler Relationship Specialty Start Date End Date Uriah Alicea MD [address] [place] [id number] PCP - General Internal Medicine 12/03/23
[2024-06-27 08:43] VITALS: BMI 39.1
--- NOTE | 2024-06-27 08:43 | P.SLEEP_ITS ---
Sleep Study Date of Study: 05/31/24 Ordering Provider: Ender Meeks APRN Interpreting Physician: Heena Alberto DO Sleep Study Type: Polysomnogram Height: 1.7 m Weight: 113.398 kg Body Mass Index: 39.1 Neck Circumference (inches): 17 [place]: 12 Reason for Sleep Study Daytime hypersomnia Sleep History The patient is a 43-year-old female that had a sleep study ordered by the pulmonary group for evaluation daytime fatigue. The patient denies awakening from sleep short of breath. She frequently awakens at night with heartburn, belching or cough. She rarely snores and is never loud enough that others com plain. She occasionally has trouble sleeping when she has a cold. She denies waking up gasping for air throughout the night. She denies having breathing problems at night observed by herself or others. She denies sweating excessively at night. She occasionally has heart palpitations or irregular heartbeats during the night. She frequently falls asleep during the day but never while driving. She rarely experiences loss of muscle tone when extremely emotional. She occasionally has trouble at school or work due to sleepiness. She rarely feels unable to move while waking up or falling asleep. She constantly experiences vivid dreamlike scenes upon awakening or falling asleep. She denies feeling afraid of going to sleep. She rarely has nightmares. She occasionally remembers her dreams. She constantly has thoughts racing through her mind. She denies feeling sad or depressed. She rarely has anxiety. She rarely has muscular tension. She rarely notices parts of her body jerk. She denies kicking during the night. She denies having crawling and aching feelings in her legs and denies having leg pain during the night. She rarely grinds her teeth during sleep but occasionally awakens with morning jaw pain. She does currently use a deputy sheriff building guard. She frequently is bothered by pain during the day but rarely awakened by pain during the night. She frequently wakes up feeling stiff in the morning. She frequently wakes up with sore or achy muscles. She constantly wakes up with pain in the neck, spine and other joints. She goes to bed between 9:45-10 p.m. on weekdays and between 10 to 10:30 p.m. on the weekends. It takes her 30-60 minutes to fall asleep. She wakes up 1-3 times throughout the night for unknown reasons. When she wakes up she will think about her dreams, right a story or music. She wakes up between 2-5 a.m. on both weekdays and weekends. He typically gets 5-9 hours of sleep per day. She will stay in bed for 10-15 minutes after waking up in the morning. She currently lives with her . She denies consuming any caffeinated beverages within 2 hours of bedtime. She denies engaging in physical exercise before bedtime. She will read before falling asleep. She denies watching television before falling asleep. She will take naps in afternoon of the evening and they are occasionally refreshing. She denies consuming caffeinated beverages throughout the day. She denies tobacco, alcohol and recreational drug use. [facility] Past Medical History Medical History Diarrhea Dermatitis Left breast mass Left breast mass Screening mammogram, encounter for COVID-19 Screening mammogram, encounter for Eczema Acid reflux Abnormal Pap smear of cervix 09/24/2016 ascus Diaphragmatic hernia without obstruction or gangrene Dyskinesia of esophagus Helicobacter pylori [H. pylori] as the cause of diseases classified elsewhere Neuralgia of left peroneal nerve Patellar tendinitis, left knee Surgical History Surgical History H/O right breast biopsy (11/2023) Benign History of endoscopic retrograde cholangiopancreatography 2016 pancreatitis History of cholecystectomy 2016 History of esophagogastroduodenoscopy (EGD) 2012 x2 History of dilation and curettage 03/11/18 hscope d&c/polypectomy--irregular vaginal bleeding, endometrial polyp Family History Family History Father Heart disease Hypertension Diabetes mellitus Other Cerebrovascular accident Family history of arthritis Family history of malignant neoplasm Family history of mental disorder Social History Social History Smoking status: Never smoker Second hand tobacco smoke exposure: No Alcohol intake: former Alcohol use details: occasionally Substance use: never Substance use type: does not use Do You Feel Safe in your Home?: Yes Lack of Transportation: No Lack of Food: Never True Current Housing: I Have Housing Concerned About Future Housing: No Difficulty Paying Gas/Electric Bills: No Difficulty Paying for Meds: No Currently Unemployed: No Education: Master's Degree or Higher Difficulty w/ Childcare or Family Care: No Living arrangements: with family Additional living arrangements comments: Occupation/Education: occupation 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 Gender identity (if verbalized by the patient): Female Sexual Orientation (if Verbalized by the Patient): Straight or Heterosexual Medications Home Medications ?Medication ?Instructions ?Recorded ?Confirmed ?Type cholecalciferol (vitamin D3) 25 25 mcg PO DAILY 06/16/22 06/07/24 History mcg (1,000 unit) tablet cetirizine 10 mg capsule (Zyrtec) 10 mg PO DAILY PRN 05/27/23 06/07/24 History esomeprazole magnesium 40 mg See Rx Instructions .Route 03/04/24 06/07/24 Rx capsule,delayed release .COMPLEX #180 caps hydralazine 25 mg tablet 25 mg PO BID #180 tabs 03/04/24 06/07/24 Rx losartan 100 See Rx Instructions .Route 03/10/24 06/07/24 Rx mg-hydrochlorothiazide 12.5 mg .COMPLEX #90 tabs tablet amlodipine 10 mg tablet See Rx Instructions .Route 06/02/24 06/07/24 Rx .COMPLEX #90 tabs Sleep Procedure A full night polysomnogram using the [employer] multi-channel system recor ded the standard physiologic parameters including EEG, EOG, submentalis EMG, anterior tibialis EMG, EKG, body position, nasal and oral airflow using nasal pressure sensor and thermistor.? Respiratory parameters of chest and abdominal movements were recorded with Respiratory Inductance Plethysmography belts. Oxygen saturation was recorded by pulse oximetry. Video monitoring was also performed. Sleep stages, periodic limb movements, and EEG arousals were scored in 30 second epochs according to the criteria of the AASM Scoring Manual. The Apnea-Hypopnea Index was calculated using CMS guidelines for definition of hypopnea with 4% O2 desaturations while scoring respiratory events. Sleep Architecture The total recording time was 547.3 minutes.? The total sleep time was 364.5 minutes. Sleep latency was 26.3 minutes. REM latency was 90.0 minutes. Sleep efficiency was 66.6%. The patient had 28 awakenings for an awakening index of 4.6. Wake after sleep onset time was 156.5 minutes. The patient spent 19.0 minutes, 5.2% of total sleep time in Stage N1. The patient spent 217.0 minutes, 59.5% in Stage N2. The patient spent 55.5 minutes, 15.2% in Stage N3. The patient spent 73.0 minutes, 20.0% in Stage REM sleep. Respiratory Analysis The patient had 14 hypopneas for an overall Apnea Hypopnea Index of 2.3. The REM Apnea Hypopnea Index was 16.4. The NREM Apnea Hypopnea Index was 0.4. The patient had a Central Apnea Hypopnea Index of 0. There was no evidence of [place] Respirations. Arousals There were 61 total arousals for an arousal index of 10.0. There were 31 spontaneous arousals for an index of 5.1. There was 1 arousal due to respiratory events for an index of 0.2. There were 0 arousals due to periodic limb movements for an index of 0.? There were 21 arousals due to isolated limb movements for an index of 3.5. Periodic Limb Movements The patient had 32 isolated limb movements with an index of 5.3. The patient had 0 periodic limb movements with an index of 0. Patient had a total of 32 limb movements with a total limb movement index of 5.3. Oximetry Data The patient had an average oxygen saturation of 95.0% in sleep with a minimum oxygen saturation of 88.0% and a maximum oxygen saturation of 98.0%. The patient had 14 oxygen desaturations that were 4% or greater resulting in an Oxygen Desaturation Index of 2.3.? The patient spent 0 minutes of total sleep time with an oxygen saturation below 88%. Snoring Profile Moderate snoring was present throughout the study. Cardiac Profile The EKG showed normal sinus rhythm. No arrhythmias or premature beats were seen. The patient had an average pulse rate of 75.6 bpm with a minimum pulse of rate of 58.0 bpm and a maximum pulse rate of 108.0 bpm.? EEG Profile No signs of seizure activity seen. Assessment and Plan Assessment and Plan (1) Excessive daytime sleepiness: Code(s): G47.19 - Other hypersomnia Status: Acute Assessment and Plan: The patient had an overall AHI of 2.3 with desaturation down to 88%. This is not consistent with sleep-disordered breathing. The patient had a sleep latency of 26.3 minutes and a REM latency of 90 minutes. No SOREM was seen during this study. Please see MSLT report. Data The data obtained during this sleep study is adequate for interpretation. Certification This sleep study has been reviewed by a board certified sleep medicine physician.
[2024-06-27 08:52] VITALS: BMI 39.1
--- NOTE | 2024-06-27 08:52 | P.SLEEP_ITS ---
Sleep Study Date of Study: 05/31/24 Ordering Provider: Ender Meeks APRN Interpreting Physician: Heena Alberto DO Sleep Study Type: Multiple Sleep Latency Test Height: 1.7 m Weight: 113.398 kg Body Mass Index: 39.1 Neck Circumference (inches): 17 [place]: 12 Reason for Sleep Study Excessive daytime sleepiness Sleep History Please see sleep history on PSG report from the previous night. [facility] Past Medical History Medical History Diarrhea Dermatitis Left breast mass Left breast mass Screening mammogram, encounter for COVID-19 Screening mammogram, encounter for Eczema Acid reflux Abnormal Pap smear of cervix 09/24/2016 ascus Diaphragmatic hernia without obstruction or gangrene Dyskinesia of esophagus Helicobacter pylori [H. pylori] as the cause of diseases classified elsewhere Neuralgia of left peroneal nerve Patellar tendinitis, left knee Surgical History Surgical History H/O right breast biopsy (11/2023) Benign History of endoscopic retrograde cholangiopancreatography 2016 pancreatitis History of cholecystectomy 2016 History of esophagogastroduodenoscopy (EGD) 2012 x2 History of dilation and curettage 03/11/18 hscope d&c/polypectomy--irregular vaginal bleeding, endometrial polyp Family History Family History Father Heart disease Hypertension Diabetes mellitus Other Cerebrovascular accident Family history of arthritis Family history of malignant neoplasm Family history of mental disorder Social History Social History Smoking status: Never smoker Second hand tobacco smoke exposure: No Alcohol intake: former Alcohol use details: occasionally Substance use: never Substance use type: does not use Do You Feel Safe in your Home?: Yes Lack of Transportation: No Lack of Food: Never True Current Housing: I Have Housing Concerned About Future Housing: No Difficulty Paying Gas/Electric Bills: No Difficulty Paying for Meds: No Currently Unemployed: No Education: Master's Degree or Higher Difficulty w/ Childcare or Family Care: No Living arrangements: with family Additional living arrangements comments: Occupation/Education: occupation 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 Gender identity (if verbalized by the patient): Female Sexual Orientation (if Verbalized by the Patient): Straight or Heterosexual Medications Home Medications ?Medication ?Instructions ?Recorded ?Confirmed ?Type cholecalciferol (vitamin D3) 25 25 mcg PO DAILY 06/16/22 06/07/24 History mcg (1,000 unit) tablet cetirizine 10 mg capsule (Zyrtec) 10 mg PO DAILY PRN 05/27/23 06/07/24 History esomeprazole magnesium 40 mg See Rx Instructions .Route 03/04/24 06/07/24 Rx capsule,delayed release .COMPLEX #180 caps hydralazine 25 mg tablet 25 mg PO BID #180 tabs 03/04/24 06/07/24 Rx losartan 100 See Rx Instructions .Route 03/10/24 06/07/24 Rx mg-hydrochlorothiazide 12.5 mg .COMPLEX #90 tabs tablet amlodipine 10 mg tablet See Rx Instructions .Route 06/02/24 06/07/24 Rx .COMPLEX #90 tabs Sleep Procedure The MSLT is an objective measure of daytime sleepiness performed after a nocturnal PSG. This test typically is performed with 5 nap opportunities during the daytime period with each nap opportunity lasting 20 minutes and with a 2- hour wake period required between naps. The recording montage for the MSLT includes frontal (F3-M2 or F4-M1), central (C3-M2 or C4-M1), occipital (O1-M2 or O2-M1) derivations, left and right eye EOGs, mental/submental EMG, and EKG.? Sleep Architecture Nap Summary: Nap trials started at 8:16:10 AM following an overnight polysomnogram that ended at 06:42:10 AM with an overall Apnea Hypopnea index of 2.3 events per hour with 4% or greater desaturations and an overall Apnea Hypopnea index 3.6 events per hour using 3% desaturation and/or arousal criteria. Sleep onset REM (SOREM) during the overnight polysomnogram. Nap 1 commenced at 08:16:10 AM. Sleep latency was 20.0 minutes. REM sleep did not occur . Total sleep time was 0 minutes. Nap was terminated at 08:36:09 AM. The patient reported that sleep did not occur.The patient reported that dreaming did not occur. Nap 2 commenced at 10:33:05 AM. Sleep latency was 17.6 minutes. REM sleep did occur. REM latency was 6.0 minutes. Total sleep time was 13.5 minutes. Nap was terminated at 11:05:55 AM. The patient reported that sleep occurred. The patient reported that dreaming did not occur. Nap 3 commenced at 12:15:45 PM. Sleep latency was 20.2 minutes. REM sleep did not occur. Total sleep time was 0 minutes. Nap was terminated at 12:35:56. The patient reported that sleep did not occur. The patient reported that dreaming did not occur. Nap 4 commenced at 02:15:15 PM. Sleep latency was 17.5 minutes. REM sleep did not occur. Total sleep time was 13.9 minutes. Nap was terminated at 02:48:05. The patient reported that sleep occurred.The patient reported that dreaming did not occur. Nap 5 commenced at 04:13:15 PM. Sleep latency was 20.7 minutes. REM sleep did not occur. Total sleep time was 0 minutes. Nap was terminated at 04:33:59 PM. The patient reported that sleep did not occur. The patient reported that dreaming did not occur. The patient achieved sleep in 2 of 5 nap opportunities. The overall average sleep latency was 19.2 minutes. The patient achieved REM sleep (SOREM) in 1 nap. The overall average REM latency was 6.0 minutes. Respiratory Analysis N/A Arousals N/A Periodic Limb Movements N/A Oximetry Data N/A Snoring Profile N/A Cardiac Profile N/A EEG Profile EEG was normal and showed no signs of seizure activity. Assessment and Plan Assessment and Plan (1) Excessive daytime sleepiness: Code(s): G47.19 - Other hypersomnia Status: Acute Assessment and Plan: The patient achieved sleep in 2 of 5 nap opportunities. The overall average sleep latency was 19.2 minutes. The patient achieved REM sleep (SOREM) in 1 nap. The results of this study do not meet criteria for narcolepsy or hypersomnia. Please see polysomnogram report. Data The data obtained during this sleep study is adequate for interpretation. Certification This sleep study has been reviewed by a board certified sleep medicine physician.
== END 2024-06-01 16:36 | disposition home or self-care (01) ==
LOC: ANHCSM 08:32
PROVIDERS: PCP Emergency Medicine; Visit Provider Nurse Practitioner Family
DX: G47.19 Other hypersomnia (principal); G47.9 Sleep disorder, unspecified
CPT/HCPCS: 95805; 95810